=== PATIENT | female | born 1945 | race Caucasian/White ===

== ENCOUNTER 2016-09-19 04:02 | Inpatient (IN) | payer MEDICARE, MEDICAID ==
[~2016-09-19] VITALS: Ht 144.8 cm; Wt 57.3 kg
[~2016-09-19 04:02] MED LIST: CITA10TA8 PO; DIVA250T6 PO; PRED10TA PO; QUET25TA PO
[2016-09-19 06:00] LABS: BLOOD UREA NITROGEN 17 mg/dL (7-18)
[2016-09-19 06:04] LABS: IS PT STATUS REG ER OR PRE ER? YES
[2016-09-19] MEDS ORDERED: [UNRECOGNIZED DRUG - OTHER] (07:14)
[2016-09-19] MEDS ORDERED: CIPROFLOXACIN 500 MG TABLET ONE (08:23)
[2016-09-19] MEDS ORDERED: CIPROFLOXACIN 500 MG TABLET PO ONE (08:30)
[2016-09-19] MEDS ORDERED: ONDANSETRON ODT 4 MG PO PRN (10:00)
[2016-09-19] MEDS ORDERED: DOCUSATE 100 MG CAPSULE PO PRN (10:00)
[2016-09-19] MEDS ORDERED: HALOPERIDOL 1 MG TABLET PO PRN (10:00)
[2016-09-19 11:00] VITALS: BP 134/79
[2016-09-19] MEDS ORDERED: MAGNESIUM SULFATE PMX 2GM/50ML 50 ML IV ONE (11:00)
[2016-09-19] MEDS ORDERED: ENOXAPARIN 40 MG/0.4 ML SQ SCH (11:00)
[2016-09-19 13:58] LABS: IS PT STATUS REG ER OR PRE ER? NO
[2016-09-19] MEDS: ACETAMINOPHEN 325 MG TABLET PO PRN (14:22)
[2016-09-19] MEDS ORDERED: SODIUM PHOSPHATE 10 MMOL in SODIUM CHLORIDE 0.9% 500 ML IV ONE (15:00)
[2016-09-19] MEDS ORDERED: DONE5TAB7 PO (17:45)
[2016-09-19] MEDS ORDERED: DIVA250T14 PO (17:45)
[2016-09-19] MEDS ORDERED: SERT100T PO (17:45)
[2016-09-19] MEDS ORDERED: MELA5CAP PO (17:45)
[2016-09-19] MEDS ORDERED: METF-649 PO (17:45)
[2016-09-19] MEDS ORDERED: SERTRALINE 100MG TABLET PO PRN (18:00)
[2016-09-19] MEDS ORDERED: metFORMIN XR 500 MG TAB.ER.24H PO PRN (18:00)
[2016-09-19] MEDS: DIVALPROEX 250 MG TAB.ER.24H PO SCH ×2 (18:22→20:01)
[2016-09-19] MEDS: LORazepam 2 MG/ML, 1ML IVPush PRN ×2 (18:22→23:06)
[2016-09-19] MEDS: CIPROFLOXACIN 500 MG TABLET PO SCH (20:00)
[2016-09-19 20:06] VITALS: BP 146/83
[2016-09-19] MEDS ORDERED: QUETIAPINE 25MG TABLET PO SCH (21:00)
[2016-09-20 02:00] VITALS: BP 145/75
[2016-09-20 05:20] LABS: ASPARTATE AMINO TRANSFERASE 14 U/L (15-37); BLOOD UREA NITROGEN 13 mg/dL (7-18)
[2016-09-20] MEDS: LORazepam 2 MG/ML, 1ML IVPush PRN ×2 (06:17→12:52)
[2016-09-20 06:58] VITALS: BP 112/71
[2016-09-20] MEDS: DIVALPROEX 250 MG TAB.ER.24H PO SCH ×3 (10:51→21:56)
[2016-09-20] MEDS: CIPROFLOXACIN 500 MG TABLET PO SCH ×2 (10:52→21:56)
[2016-09-20] MEDS: ACETAMINOPHEN 325 MG TABLET PO PRN (10:59)
[2016-09-20] MEDS ORDERED: DIVALPROEX 250 MG TABLET.DR PO SCH (13:00)
[2016-09-20 13:52] VITALS: BP 120/80
[2016-09-20 19:40] VITALS: BP 112/75
[2016-09-20] MEDS: DONEPEZIL 5 MG TABLET PO SCH (21:55)
[2016-09-20] MEDS: CITALOPRAM 10 MG TABLET PO SCH (21:55)
[2016-09-20] MEDS: ENOXAPARIN 40 MG/0.4 ML SQ SCH (21:56)
[2016-09-21] MEDS: LORazepam 2 MG/ML, 1ML IVPush PRN ×4 (00:08→21:01)
[2016-09-21] MEDS ORDERED: LORazepam 2 MG/ML, 1ML IVPush ONE (02:33)
[2016-09-21 02:42] VITALS: BP 123/80
[2016-09-21 08:03] VITALS: BP 138/83
[2016-09-21] MEDS: CITALOPRAM 10 MG TABLET PO SCH (10:28)
[2016-09-21] MEDS: DONEPEZIL 5 MG TABLET PO SCH (10:28)
[2016-09-21] MEDS: CIPROFLOXACIN 500 MG TABLET PO SCH ×2 (10:29→21:01)
[2016-09-21] MEDS: DIVALPROEX 250 MG TAB.ER.24H PO SCH ×3 (10:29→21:01)
[2016-09-21 14:22] VITALS: BP 160/99
[2016-09-21 19:12] VITALS: BP 135/75
[2016-09-21] MEDS: ENOXAPARIN 40 MG/0.4 ML SQ SCH (21:01)
[2016-09-22 02:07] VITALS: BP 128/78
[2016-09-22 08:56] VITALS: BP 146/82
[2016-09-22] MEDS: CITALOPRAM 10 MG TABLET PO SCH (09:52)
[2016-09-22] MEDS: DONEPEZIL 5 MG TABLET PO SCH (09:52)
[2016-09-22] MEDS: DIVALPROEX 250 MG TAB.ER.24H PO SCH ×3 (09:52→19:58)
[2016-09-22] MEDS: LORazepam 2 MG/ML, 1ML IVPush PRN ×2 (11:33→18:22)
[2016-09-22 13:28] VITALS: BP 150/88
[2016-09-22] MEDS: ACETAMINOPHEN 325 MG TABLET PO PRN (17:24)
[2016-09-22 19:13] VITALS: BP 164/100
[2016-09-22] MEDS: ENOXAPARIN 40 MG/0.4 ML SQ SCH (19:58)
[2016-09-23 02:53] VITALS: BP 128/68
[2016-09-23] MEDS: LORazepam 2 MG/ML, 1ML IVPush PRN (04:19)
[2016-09-23] MEDS: DONEPEZIL 5 MG TABLET PO SCH (09:20)
[2016-09-23] MEDS: DIVALPROEX 250 MG TAB.ER.24H PO SCH ×3 (09:21→22:06)
[2016-09-23] MEDS: CITALOPRAM 10 MG TABLET PO SCH (09:21)
[2016-09-23] MEDS ORDERED: QUETIAPINE 25MG TABLET PO SCH (11:30)
[2016-09-23 13:13] VITALS: BP 136/79
[2016-09-23 20:58] VITALS: BP 122/83
[2016-09-23] MEDS: ENOXAPARIN 40 MG/0.4 ML SQ SCH (22:06)
[2016-09-24 03:01] VITALS: BP 156/81
[2016-09-24] MEDS: ACETAMINOPHEN 325 MG TABLET PO PRN (03:07)
[2016-09-24 08:00] VITALS: BP 139/91
[2016-09-24] MEDS: DONEPEZIL 5 MG TABLET PO SCH (08:22)
[2016-09-24] MEDS: CITALOPRAM 10 MG TABLET PO SCH (08:22)
[2016-09-24] MEDS: DIVALPROEX 250 MG TAB.ER.24H PO SCH ×3 (08:22→20:30)
[2016-09-24] MEDS ORDERED: LORazepam 2 MG/ML, 1ML IM PRN (11:30)
[2016-09-24 14:00] VITALS: BP 115/74
[2016-09-24 20:00] VITALS: BP 135/92
[2016-09-24] MEDS: ENOXAPARIN 40 MG/0.4 ML SQ SCH (20:30)
[2016-09-25 02:00] VITALS: BP 130/86
[2016-09-25 07:44] VITALS: BP 131/78
[2016-09-25] MEDS: CITALOPRAM 10 MG TABLET PO SCH (08:57)
[2016-09-25] MEDS: DONEPEZIL 5 MG TABLET PO SCH (08:57)
[2016-09-25] MEDS: DIVALPROEX 250 MG TAB.ER.24H PO SCH (08:57)
[2016-09-25] MEDS ORDERED: DIVA250T14 PO (10:55)
[2016-09-25] MEDS ORDERED: DONE5TAB7 PO (10:55)
[2016-09-25] MEDS ORDERED: CITA10TA8 PO (10:55)
[2016-09-25] MEDS ORDERED: CLON0.1T12 PO (10:55)
== END 2016-09-25 12:39 | disposition hospice, home (50) | DRG 56 ==
LOC: ED 05:57 → EDIP 08:25 → 3NE 09:10 → 4WST 12:45 → 4EST 09-20 10:48
PROVIDERS: ADMIT Internal Medicine
PROC: 0T9B70Z Drainage of Bladder with Drainage Device, Via Natural or Artificial Opening (ICD-10-PCS; principal; 2016-09-19)
DX: G30.1 Alzheimer's disease with late onset (principal); G93.41 Metabolic encephalopathy; F02.81 Dementia in other diseases classified elsewhere, unspecified severity, with behavioral disturbance; J96.10 Chronic respiratory failure, unspecified whether with hypoxia or hypercapnia; N39.0 Urinary tract infection, site not specified; E44.1 Mild protein-calorie malnutrition; G31.83 Neurocognitive disorder with Lewy bodies; I10 Essential (primary) hypertension; E11.9 Type 2 diabetes mellitus without complications; I45.81 Long QT syndrome; J44.9 Chronic obstructive pulmonary disease, unspecified; Z82.0 Family history of epilepsy and other diseases of the nervous system; Z87.891 Personal history of nicotine dependence; Z90.49 Acquired absence of other specified parts of digestive tract; Z91.83 Wandering in diseases classified elsewhere; Z99.81 Dependence on supplemental oxygen; Z82.3 Family history of stroke; Z88.8 Allergy status to other drugs, medicaments and biological substances; Z68.27 Body mass index [BMI] 27.0-27.9, adult
CPT/HCPCS: 36415; 71010; 80048; 80053; 80164; 81001; 82040; 82962; 83036; 83735; 84100; 84484; 85025; 87086; 93005; 93306; 96372; J1650; J2060; J3475; J7040